=== PATIENT | male | born 1985 | race Caucasian/White ===

== ENCOUNTER 2016-10-06 16:51 | Emergency (ER) | payer MEDICAID ==
[~2016-10-06 16:51] MED LIST: BACITRACIN30 GM TOP; CLARITIN10 MG PO; DOLOBID500 MG PO; DOXYCYCLINE PO; GUAIFENESI1 TAB.SR . PO; IBUPROFEN PO; NO MEDICATIONS; PREDNISONE PO
== END 2016-10-06 17:05 | disposition home or self-care (01) ==
LOC: SED 16:51
DX: T40.1X1A Poisoning by heroin, accidental (unintentional), initial encounter (principal); F17.200 Nicotine dependence, unspecified, uncomplicated; Z98.890 Other specified postprocedural states
CPT/HCPCS: 99282